=== PATIENT | male | born 2000 | race Caucasian/White ===

== ENCOUNTER 2021-12-03 11:48 | Emergency (ER) | payer OTHER ==
[~2021-12-03] VITALS: Ht 167.6 cm; Wt 65.8 kg
== END 2021-12-03 14:30 | disposition home or self-care (01) ==
LOC: ER 11:48
DX: B34.9 Viral infection, unspecified (principal)

== ENCOUNTER 2022-01-05 20:29 | Emergency (ER) | payer OTHER ==
[~2022-01-05] VITALS: Ht 170.2 cm; Wt 66.2 kg
[2022-01-05] MEDS ORDERED: KETO10TA2 PO (22:31)
[2022-01-05] MEDS ORDERED: NORFLEX100MG PO (22:31)
== END 2022-01-05 22:37 | disposition home or self-care (01) ==
LOC: ER 20:29
DX: M54.9 Dorsalgia, unspecified (principal)

== ENCOUNTER 2022-02-06 11:02 | Emergency (ER) | payer OTHER ==
[~2022-02-06] VITALS: Ht 167.6 cm; Wt 66.2 kg
[~2022-02-06 11:02] MED LIST: KETO10TA2 PO; NORFLEX100MG PO
== END 2022-02-06 14:49 | disposition home or self-care (01) ==
LOC: ER 11:02
DX: M54.9 Dorsalgia, unspecified (principal); M62.838 Other muscle spasm

== ENCOUNTER 2022-03-29 17:31 | Emergency (ER) | payer OTHER ==
[~2022-03-29] VITALS: Ht 167.6 cm; Wt 64.0 kg
== END 2022-03-29 21:26 | disposition home or self-care (01) ==
LOC: ER 17:31
DX: A90 Dengue fever [classical dengue] (principal)